=== PATIENT | female | born 1955 | race Caucasian/White ===

== ENCOUNTER 2017-12-22 14:56 | Emergency (ER) | payer BC ==
[2017-12-22 15:28] VITALS: BP 113/64
--- NOTE | 2017-12-22 15:36 | UC ---
Hand/Wrist HPI - HPI Summary HPI Summary: left 4th finger pip swelling no know injury pain and swelling has progressed down her on her finger onto the top of her hand. No systemic illness will range of motion - History Of Current Complaint Chief Complaint: UCUpperExtremity Stated Complaint: LEFT HAND FINGER COMPLAINT Time Seen by Provider: 12/22/17 15:36 Hx Obtained From: Patient ?: No Mechanism Of Injury: No known injury Onset/Duration: Sudden Onset, Lasting Hours Severity Initially: Moderate Severity Currently: Moderate Pain Intensity: 7 Pain Scale Used: 0-10 Numeric Character Of Pain: Aching, Throbbing Alleviating Factor(s): Nothing Associated Signs And Symptoms: Positive: Swelling, Redness Related History: Dominant Hand Left - Allergies/Home Medications Allergies/Adverse Reactions: Allergies Allergy/AdvReac Type Severity Reaction Status Date / Time amoxicillin Allergy Swelling Verified 12/22/17 15:14 Of Face,Lips,& Throat clavulanic acid Allergy Swelling Verified 12/22/17 15:14 [From Augmentin] Of Face,Lips,& Throat nitrofurantoin Allergy Rash Verified 12/22/17 15:14 [From Macrobid] ciprofloxacin [From Cipro] AdvReac Diarrhea Verified 12/22/17 15:14 Motrin AdvReac See Comment Uncoded 08/28/16 15:44 Home Medications: Home Medications Multivitamin [Once Daily] 1 each PO DAILY 12/22/17 [History Confirmed 12/22/17] PMH/Surg Hx/FS Hx/Imm Hx Previously Healthy: No Cardiovascular History: Cardiac Disease - Palpitations - Surgical History Surgical History: Yes Surgery Procedure, Year, and Place: D & C 11/29/14, T AND A, APPY, KNEE SCOPE, GANGLION IN WRIST, VERICOSE VEIN, SINUS, LUMBAR 2005, [facility], DENTAL - Family History Known Family History: Negative: Hypertension, Diabetes - Social History Occupation: Retired Lives: With Family Alcohol Use: Rare Substance Use Type: None Smoking Status (MU): Never Smoked Tobacco - Immunization History Most Recent Influenza Vaccination: [id number] Review of Systems Constitutional: Negative Skin: Negative Eyes: Negative ENT: Negative Respiratory: Negative Cardiovascular: Negative Gastrointestinal: Negative Genitourinary: Negative Motor: Negative Neurovascular: Negative Musculoskeletal: Arthralgia - Left fourth finger Neurological: Negative Psychological: Negative Is Patient Immunocompromised?: No All Other Systems Reviewed And Are Negative: Yes Physical Exam Triage Information Reviewed: Yes Appearance: Well-Appearing - R a 38 feeling like the, No Pain Distress, Well- Nourished Vital Signs: Initial Vital Signs Temp 98.5 F 12/22/17 15:22 Pulse 63 12/22/17 15:22 Resp 14 12/22/17 15:22 BP 113/64 12/22/17 15:22 Pulse Ox 100 12/22/17 15:22 Vital Signs Reviewed: Yes Eye Exam: Normal Eyes: Positive: Conjunctiva Clear - was ENT Exam: Normal ENT: Positive: Normal ENT inspection, Hearing grossly normal. Negative: Nasal congestion, Trismus, Muffled voice, Hoarse voice Dental Exam: Normal Neck exam: Normal Neck: Positive: Supple, Nontender Respiratory Exam: Normal Respiratory: Positive: No respiratory distress, No accessory muscle use Cardiovascular Exam: Normal Cardiovascular: Positive: RRR, Pulses Normal, Brisk Capillary Refill Musculoskeletal Exam: Other Musculoskeletal: Positive: Strength Intact, ROM Intact, Edema @ - Left fourth finger DIP and PIP joint Neurological Exam: Normal Neurological: Positive: Alert Psychological Exam: Normal Skin Exam: Other Skin: Positive: Other - Red warm swelling left fourth finger DIP and PIP. Some erythema on back of hand Diagnostics - Radiology No standard instances Xray Interpretation: Positive (See Comments) Radiology Interpretation Completed By: Radiologist - possible remote injury Hand/Wrist Course/Dx - Course Course Of Treatment: Lab studies, Medrol Dosepak, doxycycline follow with primary care provider 1-3 days. To emergency department should symptoms worsen in anyway - Differential Dx/Diagnosis Provider Diagnoses: Arthritic changes left fourth finger, possible cellulitis Discharge - Sign-Out/Discharge Documenting (check all that apply): Discharge - Discharge Plan Condition: Stable Disposition: HOME Prescriptions: DOXYcycline CAP(*) [DOXYcycline 100MG CAP(*)] 100 mg PO BID #20 cap methylPREDNISolone [Medrol] 4 mg PO .PER SERVANDO #1 tab.[id number] Patient Education Materials: Arthritis (ED) Referrals: Virginia Mcmullen MD [Primary Care Provider] - 3 Days Additional Instructions: should pain or swelling continue or worsen or if you develop systemic symptoms please report directly to the emergency department - Billing Disposition and Condition Condition: STABLE Disposition: HOME
--- NOTE | 2017-12-22 16:33 | RAD ---
Indication: Joint swelling. 4 views of the right hand are reviewed. There are likely degenerative changes of the proximal and distal interphalangeal joints of the fourth digit. No fracture is identified. Bony fragment likely old injury is noted at the radial aspect of the distal interphalangeal joint. IMPRESSION: Soft tissue swelling. Likely old injury at the radial aspect of the distal interphalangeal joint of the fourth digit.
[2017-12-23 11:31] LABS: ABS Basophils 0 10^3/ul (0-0.2); ABS Eosinophils 0.1 10^3/ul (0-0.6); ABS Lymphocytes 1.7 10^3/ul (1.0-4.8); ABS Monocytes 0.7 10^3/ul (0-0.8); ABS Neutrophils 7.2 10^3/ul (1.5-7.7); ABS Nucleated RBC 0 10^3/ul; Eosinophil % 1.3 % (0-6); Hematocrit 43 % (35-47); Hemoglobin 14.7 g/dl (12.0-16.0); Lymphocyte % 17.2 % (25-47); Mean Corpuscular HGB Conc 34 g/dl (31-36); Mean Corpuscular Hemoglobin 30 pg (27-31); Mean Corpuscular Volume 88 fL (80-97); Nucleated Red Blood Cells % 0.4; Platelet Count 243 10^3/ul (150-450); Red Blood Count 4.87 10^6/ul (4.0-5.4); Red Cell Distribution Width 13 % (10.5-15); White Blood Count 9.7 10^3/ul (3.5-10.8)
[2017-12-23 11:42] LABS: EGFR Non-African American 75.5 (>60)
== END 2017-12-22 16:55 | disposition home or self-care (01) ==
LOC: UCCORT 14:56
DX: M19.042 Primary osteoarthritis, left hand (principal); Z88.3 Allergy status to other anti-infective agents; Z88.6 Allergy status to analgesic agent
CPT/HCPCS: 36415; 73140; 80053; 85025; 85652; 86140; 86431; 99212; G0463

== ENCOUNTER 2018-09-01 07:46 | Emergency (ER) | payer BC ==
[2018-09-01 08:04] VITALS: BP 107/68
--- NOTE | 2018-09-01 08:23 | UC ---
Throat Pain/Nasal Carlos HPI - HPI Summary HPI Summary: Patient presents to urgent care reporting progressive sore throat since 08/27. Patient reports some sinus congestion postnasal drip. Patient reports her ears feel plugged. Patient denies fevers or chills. Patient has taken over-the- counter ibuprofen but no other medications. Patient without any known sick contacts. Patient without any fevers,chills, rash. No chest pain or shortness of breath. Patient has not taken any [id number] decongestants or cough medications. Patient to get the flu vaccine a chair. Patient is not immunocompromised. Patient's medications reviewed this visit. - History of Current Complaint Chief Complaint: UCGeneralIllness Stated Complaint: SORE THROAT, EARS Time Seen by Provider: 09/01/18 08:13 Hx Obtained From: Patient Pain Intensity: 6 - Allergies/Home Medications Allergies/Adverse Reactions: Allergies Allergy/AdvReac Type Severity Reaction Status Date / Time amoxicillin Allergy Swelling Verified 09/01/18 08:01 Of Face,Lips,& Throat clavulanic acid Allergy Swelling Verified 09/01/18 08:01 [From Augmentin] Of Face,Lips,& Throat nitrofurantoin Allergy Rash Verified 09/01/18 08:01 [From Macrobid] ciprofloxacin [From Cipro] AdvReac Diarrhea Verified 09/01/18 08:01 Motrin AdvReac See Comment Uncoded 09/01/18 08:01 Home Medications: Home Medications Acetaminophen [Acetaminophen Extra Strength] 1,000 mg PO Q6H PRN 09/01/18 [ History Confirmed 09/01/18] PMH/Surg Hx/FS Hx/Imm Hx Previously Healthy: Yes - Surgical History Surgical History: Yes Surgery Procedure, Year, and Place: D & C 11/29/14, T AND A, APPY, KNEE SCOPE, GANGLION IN WRIST, VERICOSE VEIN, SINUS, LUMBAR 2005, [facility], DENTAL - Family History Known Family History: Positive: Non-Contributory Negative: Hypertension, Diabetes - Social History Occupation: Retired Alcohol Use: Rare Substance Use Type: None Smoking Status (MU): Never Smoked Tobacco - Immunization History Most Recent Influenza Vaccination: [id number] Review of Systems All Other Systems Reviewed And Are Negative: Yes Constitutional: Positive: Fatigue ENT: Positive: Sore Throat, Ear Ache, Nasal Discharge, Sinus Congestion Physical Exam - Summary Physical Exam Summary: Vital Signs Reviewed: Yes A+Ox3, no distress Eyes: Conjunctiva Clear, BELINDA. EOM intact and full ENT: Hearing grossly normal TM x scant fluid, no erythema, no buldge, turbinates inflammed, + PND, mmoist, uvula midline, no exudate, + diffuse erythema Neck: Positive: Supple Respiratory: Positive: No respiratory distress, No accessory muscle use + CTA throughout no w/r Cardiovascular: RRR nl s1, s2 no m/r CBT <2 sec abd soft + BS nt/nd no guarding, no distension Musculoskeletal Exam: JONES x 4 without difficulty Strength Intact, ROM Intact Neurological: Positive: Alert, + sensation throughout Psychological: Positive: Normal Response To Family Skin: Positive: no rash, no ecchymosis Triage Information Reviewed: Yes Vital Signs: Initial Vital Signs Temp 99 F 09/01/18 08:00 Pulse 82 09/01/18 08:00 Resp 16 09/01/18 08:00 BP 107/68 09/01/18 08:00 Pulse Ox 100 09/01/18 08:00 Throat Pain/Nasal Course/Dx - Course Course Of Treatment: Patient presents to urgent care reporting 6 days of head congestion and sore throat. Patient denies fevers or chills. Patient has sick contacts. On exam patient with fluid in her bilateral ears turbinates inflamed and boggy postnasal drip. Patient's rapid strep is negative. Discussed with patient length likely viral syndrome and will take its course. Recommend patient take Flonase. Motrin Tylenol. Okay to take [id number] decongestant. Hydrate. Secretion precaution. Return precaution. Patient comfortable in agreement with plan. - Differential Dx/Diagnosis Provider Diagnosis: Pharyngitis, Upper respiratory infection Discharge - Sign-Out/Discharge Documenting (check all that apply): Patient Departure All imaging exams completed and their final reports reviewed: No Studies - Discharge Plan Condition: Stable Disposition: HOME Prescriptions: Fluticasone NASAL SPRAY 50MCG* [Flonase NASAL SPRAY 50MCG*] 2 spray BOTH NARES DAILY #1 btl Patient Education Materials: Upper Respiratory Infection (ED), Serous Otitis Media (ED), Postnasal Drip (DC) Referrals: Virginia Mcmullen MD [Primary Care Provider] - Additional Instructions: - Stay well hydrated. Drink plenty of non-alcoholic, non-caffinated beverages. - Alternate ibuprofen (Advil, Motrin) 600mg and Tylenol every 3 hours for pain or fever. Take with food. Do NOT take for more than 4-5 days. - These infections are spread by secretions - do NOT share eating or drinking utensils - clean items you share with other people such as cell phones, computer mouse, TV remote, computer tablets,etc. Once you start to feel better, change your toothbrush and your pillowcase. - get plenty of restful sleep - humidify the air in the room where you sleep - boil water, run a hot steam shower, vaporizer, cups of water by heat register -okay to take cough and cold medication - be careful with decongestants ( Pseudoephederine, phenylepherine) as this may increase your palpitations - Take nasal spray daily as prescribed - contact your doctor or return with questions or concerns - Billing Disposition and Condition Condition: STABLE Disposition: Home
== END 2018-09-01 08:39 | disposition home or self-care (01) ==
LOC: UCCORT 07:46
DX: J02.9 Acute pharyngitis, unspecified (principal); J06.9 Acute upper respiratory infection, unspecified; Z88.0 Allergy status to penicillin; Z88.8 Allergy status to other drugs, medicaments and biological substances; Z88.1 Allergy status to other antibiotic agents; Z88.6 Allergy status to analgesic agent
CPT/HCPCS: 87651; 99212; G0463